=== PATIENT | male | born 1990 | race Caucasian/White ===

== ENCOUNTER 2018-05-27 17:13 | Emergency (ER) | payer OTHER ==
[~2018-05-27] VITALS: Ht 172.7 cm; Wt 85.0 kg
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
[2018-05-27 17:29] VITALS: Ht 172.7 cm; Wt 85.0 kg
[2018-05-27] MEDS ORDERED: IBUP-1542 PO (18:28)
[2018-05-27 19:04] VITALS: BP 126/73; PULSE 65; RESP 16
== END 2018-05-27 19:04 | disposition home or self-care (01) ==
LOC: E/R 17:13
DX: M54.2 Cervicalgia (principal)
CPT/HCPCS: 72125; Z7502